=== PATIENT | female | born 1960 | race Caucasian/White ===

== ENCOUNTER → 2019-05-02 09:18 | Outpatient (CLI) | payer BC, SELFPAY ==
--- NOTE | 2019-05-02 09:28 | US_ITS ---
PROCEDURE: US THYROID CLINICAL INDICATION: AQUIRED HYPOTHYROIDISM Hypothyroid, possible thyroid nodules COMPARISON: No exams were available for comparison FINDINGS: The thyroid gland is atrophic with the right lobe measuring 17 x 7 x 6 mm and the left lobe measuring 9 x 4 x 4 mm. No mass or other anomaly. IMPRESSION: Atrophic thyroid gland with heterogeneous echogenicity Dictated by: Neel Diaz MD 05/02/2019 19:16 Electronically signed by Neel Diaz MD in [place] 05/02/2019 19:16
== END ==
PROVIDERS: PCP Family Medicine; Visit Provider Family Medicine
DX: E03.9 Hypothyroidism, unspecified (principal)
CPT/HCPCS: 76536

== ENCOUNTER 2020-06-23 10:25 | Emergency (ER) | payer BC, SELFPAY ==
[2020-06-23 11:28] VITALS: BP 122/89; PULSE 72; RESP 20; TEMP 36.6; O2SAT 97; BMI 28.3
--- NOTE | 2020-06-23 11:32 | HMH.EDUTC ---
[facility] [place] Disposition Clinical Impression: Viral syndrome, Encounter for laboratory testing for COVID-19 virus Disposition: Home, Self-Care Condition on Discharge: Good Instructions: Diarrhea, DI for Viral Syndrome, Preventing the Spread of Coronavirus Discharge Instructions Additional Instructions: *Monitor Temp, Over the counter Motrin or Tylenol as directed/as needed Tylenol every 4 hours and Motrin every 6 hours (as long as your family doctor has told you that you can take it) for fever or pain. and straight to ER if unable to lower temp less than 101.0 after medication given *Warm salt water gargles may help to soothe the throat *Throat Lozenges *Warm fluids like tea with honey may help to soothe the throat *Sleep elevated *Humidifier/Vaporizer *Flonase 2 sprays in each nostril daily but be aware that it may take 2-3 days before you notice improvement Follow up IMMEDIATELY for new or worsening symptoms or no Noticeable improvement over the next 48-72 hours. 911 for difficulty breathing or swallowing You were tested for today for COVID19 your test result should be back in the next 24-48 hours, you may call to the [facility] to see if your test results are back in the next 48 hours [phone] [facility] hours are 9am-9pm You was given a handout with instructions for Self Quarantine and Self isolation for while you wait on test results and what to do if they are positive If you are positive the Health Dept will be contacting you also Referrals: Georges Barba MD [Primary Care Provider] - As needed Forms: Work/School Release Time of Disposition: 11:36 Medical Decision Making - Rhett Inquiry Pt receiving controlled substance: No Rhett was queried for this patient: No Vital Signs: 06/23/20 11:28 06/23/20 11:33 Temperature 97.8 F 97.8 F Temperature Source Oral Pulse Rate 72 Pulse Rate [Left] 72 Respiratory Rate 20 20 Blood Pressure 122/89 Blood Pressure [Right Arm] 122/89 Blood Pressure Mean [Right Arm] 100 Blood Pressure Source [Right Arm] Automatic Cuff Blood Pressure Position [Right Arm] Sitting 02 Sat by Pulse Oximetry 97 Oxygen Delivery Method Room Air Orders (Tests/Meds): ORDERS Category Date Time Status Covid-19 Nasal PCR Sendout [facility] 06/23/20 11:19 Ordered [facility] [place] HPI - General Stated complaint: Sore throat, nausea, diarrhea Time Seen by Provider: 06/23/20 11:32 Mode of Arrival: Ambulatory Source of Information: Patient Limitations: No Limitations Description of Symptoms (Recalled from Triage Doc. by RN): Covid testing symptomatic-sore throat and fatigue, cough, diarrhea, runny nose HEENT Symptoms (Recalled from RN notes): Yes Resp Symptoms (Recalled from RN notes): Yes Skin Symptoms (Recalled from RN notes): No MS Symptoms (Recalled from RN notes): No Functional Status (Recalled from RN notes): wnl - History of Present Illness Provider Complaint: Patient state that she was recently exposed to someone that tested positive for COVID State that she has been having body aches, fatigue, diarrhea and sore throat State that this morning she felt like she was loosing her voice State that work wants her to get tested before she can return - Related Data Allergies Allergy/AdvReac Type Severity Reaction Status Date / Time No Known Allergies Allergy Verified 06/23/20 11:32 - Worker's Comp Is this a Worker's Comp case?: No Is this an [facility] Worker's Comp?: No Is this a [facility] Worker's Comp?: No [facility] History - Hepatitis A Screen Drug use history?: No High risk sexual behaviors?: No History of sexually transmitted infection?: No Currently employed?: No Childcare worker?: No Do you have indoor plumbing?: Yes Do you have electricity?: Yes Attestation statement:: This patient has been screened for Hepatitis A risk factors. I have reviewed the patient's past medical history: Yes ROS Obtained: Yes All systems reviewed & no additional complaints, Yes Systems reviewed as
[2020-06-23 11:33] VITALS: BP 122/89; PULSE 72; RESP 20; TEMP 36.6; O2SAT 97
[2020-06-24 12:47] LABS: Covid-19 Nasal PCR Sendout Lex Not Detected
== END 2020-06-23 11:56 | disposition home or self-care (01) ==
PROVIDERS: Emergency Provider Nurse Practitioner; PCP Family Medicine
DX: Z20.828 Contact with and (suspected) exposure to other viral communicable diseases (principal); B34.9 Viral infection, unspecified
CPT/HCPCS: 99201; U0004